=== PATIENT | male | born 2000 | race Caucasian/White ===

== ENCOUNTER 2024-06-08 14:38 | Emergency (ER) | payer OTHER ==
[~2024-06-08] VITALS: Ht 188 cm; Wt 109.5 kg
[2024-06-08 16:43] VITALS: BP 122/76
== END 2024-06-08 16:43 | disposition home or self-care (01) ==
LOC: ED 14:38
DX: S81.812A Laceration without foreign body, left lower leg, initial encounter (principal); W29.3XXA Contact with powered garden and outdoor hand tools and machinery, initial encounter; Y99.0 Civilian activity done for income or pay